=== PATIENT | male | born 1985 | race Caucasian/White ===

== ENCOUNTER 2018-09-25 20:26 | Emergency (ER) | payer SELFPAY ==
[~2018-09-25] VITALS: Ht 172.7 cm; Wt 99.8 kg
[2018-09-25 21:11] VITALS: BP 139/81
== END 2018-09-26 03:08 | disposition left against medical advice (07) ==
LOC: ER 20:30
DX: L02.414 Cutaneous abscess of left upper limb (principal); Z53.21 Procedure and treatment not carried out due to patient leaving prior to being seen by health care provider

== ENCOUNTER 2018-09-26 10:13 | Emergency (ER) | payer SELFPAY ==
[~2018-09-26] VITALS: Ht 172.7 cm; Wt 99.8 kg
[2018-09-26 10:22] VITALS: BP 128/95
== END 2018-09-26 12:11 | disposition home or self-care (01) ==
LOC: ER 10:13
DX: L02.414 Cutaneous abscess of left upper limb (principal); F12.10 Cannabis abuse, uncomplicated